=== PATIENT | male | born 1995 | race Caucasian/White ===

== ENCOUNTER 2021-02-07 15:46 | Emergency (ER) | payer MEDICAID ==
[~2021-02-07] VITALS: Ht 180.3 cm; Wt 81.6 kg
[2021-02-07 15:59] VITALS: BP_SYST 123
--- NOTE | 2021-02-07 16:28 | NUR ---
RECEIVED AND IN ROOM, PT HERE FOR SUTURE REMOVAL LT CALF
--- NOTE | 2021-02-07 16:45 | NUR ---
DR MODI IN TO ASSESS
--- NOTE | 2021-02-07 16:55 | NUR ---
SUTURE REMOVAL TOLERATED WELL. NO CONCERNS, WOUND WELL APPROXIMATED
[2021-02-07 17:02] VITALS: BP_SYST 123
--- NOTE | 2021-02-07 17:02 | NUR ---
Patient given written and verbal discharge instructions and verbalizes understanding. ER MD discussed with patient the results and treatment provided. Patient in stable condition. ID arm band removed. Patient educated on pain management and to follow up with PMD. Pain Scale []. Opportunity for questions provided and answered.
== END 2021-02-07 17:02 | disposition home or self-care (01) ==
LOC: SED 15:46
DX: S81.812D Laceration without foreign body, left lower leg, subsequent encounter (principal); Z48.02 Encounter for removal of sutures; W45.8XXD Other foreign body or object entering through skin, subsequent encounter
CPT/HCPCS: 99281